=== PATIENT | male | born 2000 | race Caucasian/White ===

== ENCOUNTER 2021-08-08 15:43 | Observation (INO) ==
[2021-08-08 19:34] LABS: Basophils # (auto) 0.01 K/uL (0-0.2); Basophils % (auto) 0.1 %; Eosinophils # (auto) 0.02 K/uL (0-0.5); Eosinophils % (auto) 0.1 %; Hematocrit (blood only) 47.1 % (42-52); Hemoglobin 17.4 g/dL (14.0-18.0); Immature Granulocytes # (auto) 0.06 K/uL (0.00-0.02); Immature Granulocytes % (auto) 0.4 %; Lymphocytes # (auto) 1.57 K/uL (1.2-3.4); Lymphocytes % (auto) 9.3 %; Mean Corpuscular Hemoglobin 31.2 pg (25-34); Mean Corpuscular Hgb Conc 36.9 g/dL (32-36); Mean Corpuscular Volume 84.6 fL (80-100); Mean Platelet Volume 10.7 fL (7.4-10.4); Monocytes # (auto) 1.25 K/uL (0.11-0.59); Monocytes % (auto) 7.4 %; Neutrophils % (auto) 82.7 %; Platelet Count 288 K/uL (130-400); RDW Coefficient of Variation 12.7 % (11.5-14.5); RDW Standard Deviation 39.3 fL (36.4-46.3); Red Blood Count 5.57 M/uL (4.7-6.1); White Blood Count 16.81 K/uL (4.8-10.8)
[2021-08-08 19:51] LABS: Albumin Level 4.2 gm/dl (3.4-5.0); BUN Creatinine Ratio 12.3 (10-20); Calcium 9.7 mg/dl (8.5-10.1); Creatinine Clr Calc Pharmacy 141.8 ml/min; Est GFR (African American) 111.4 ml/min; Est GFR (Non-African American) 96.1 ml/min; Potassium 3.8 mmol/L (3.5-5.1)
[2021-08-08 19:54] LABS: Bilirubin,Total 0.5 mg/dl (0.2-1); Globulin 4.3 gm/dl (2.5-4.0); Total Protein 8.5 gm/dl (6.4-8.2)
[2021-08-08] MEDS ORDERED: SODIUM CHLORIDE 0.9% 1000ML 1,000 ML IV ONE (20:36)
[2021-08-08] MEDS ORDERED: ONDANSETRON INJ 2 MG/ML 2 ML VIAL IV STA (20:36)
--- NOTE | 2021-08-08 20:46 | Emergency Department Note ---
Impression & Plan Syncope, Elevated troponin I level, Nausea & vomiting ED Provider Note NAME: ADELE REDDY AGE: 21 SEX: M : 2000 ARRIVES VIA: Walk-In INFORMANT: Patient, ED PROVIDER(S): Randolph Barrera DO CHIEF COMPLAINT: vomiting HPI: the patient is a 21-year-old male who presented to emergency department for an evaluation after having a syncopal episode. The patient had a syncopal episode after simulating vomiting. The patient states he was with his significant other. He was simulating a vomiting episode but then had a syncopal episode. The patient had the vomiting episode twice and had three total of syncopal episodes. The patient presented to the emergency department immediately. He states that this time he has no symptoms. He denies having any chest pain. He denies having any difficulty breathing. The patient denies having any lower extremity swelling or pain. He denies having any headache. He did not strike his head. He denies having any trauma. He states he did not go to see her provider but came directly to the emergency department after the episode. The patient did have an extended wait in the waiting room. He states that this time he has no symptoms. He denies have any exertional shortness of breath. The patient has had no recent traveling. He states he did recently have an upper respiratory infection. He was taking [id number] medications for this. ROS: See above HPI for pertinent positives & negatives. A total of 10 systems reviewed and were otherwise negative. PAST MEDICAL HISTORY: See Below PAST SURGICAL HISTORY: See Below FAMILY HISTORY: See Below SOCIAL HISTORY: See Below HOME MEDICATIONS: See Below ALLERGIES: See Below VITALS: See Below PHYSICAL EXAMINATION: GENERAL: Patient is awake alert in no acute distress patient is resting comfortably and showing no signs of anxiety EYES: The conjunctivae are clear. The pupils are round and reactive. EARS, NOSE, MOUTH AND THROAT: The nose is without any evidence of any deformity. Mucous membranes are moist. Tongue is midline. NECK: The neck is nontender and supple. RESPIRATORY: Normal respiratory effort is noted there is no evidence of wheezing rhonchi or rales CARDIOVASCULAR: Regular rate and rhythm noted there no murmurs rubs or gallops normal S1 normal S2. GASTROINTESTINAL: The abdomen is soft. Abdomen is nontender. MUSCULOSKELETAL/EXTREMITIES: There is no evidence of gross deformity full range of motion is noted in the hips and shoulders. SKIN: There is no obvious evidence of any rash. There are no petechiae, pallor or cyanosis noted. NEUROLOGIC: Patient is awake alert and oriented x3 strength is symmetric patellar reflexes are 2+ bilaterally MEDICAL DECISION MAKING: the patient is a 21-year-old male who presented to the emergency department for an evaluation of syncope. The patient had multiple episodes of syncope as well as nausea and vomiting. I discussed patient's laboratory and radiographic studies with him. He was found to have an abnormal troponin. For this reason further radiographic studies were obtained to ensure there was no signs of pulmonary embolism or other cause that could explain the patient's elevated troponin. He did have a nonspecific viral illness last week. This resolved spontaneously but could explain the patient's elevated troponin if this was complicated with myocarditis. For this reason I discussed this case with the on- call [facility]. The patient may require further workup as an inpatient. The patient was agreeable to the plan. Triage Nursing notes reviewed. Prior medical records reviewed Vital Signs: reviewed and remarkable for no significant abnormalities Differential diagnosis: Vasovagal event, dehydration, infection, hypoglycemia, electrolyte abnormalities, cardiac sources, intracerebral event, pulmonary embolism, seizure, toxicologic, neurologic, as well as other pathologies. ER treatment provided: See below Diagnostics interpreted by me: ECG: EKG was obtained in the emergency department. My interpretation is normal sinus rhythm at 92 bpm. There was no activity. There was no acute ST segment abnormalities noted. No previous duration was available. Cardiac Monitoring: An order was placed for continuous cardiac monitoring. The monitor shows a rate of 87 bpm with sinus rhythm. Laboratory studies: As stated above and show below. Imaging studies: See below Consultation(s): I discussed this case with Dr. Genao who was access control specialist for the [facility] group. 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 Beliefs That Will Affect Care: None Current Living Situation: Other Current Living Situation Comment: L[place]ES [place] IN SCHOOL Feels Safe at Home: Yes Assistive Devices: None Allergies Allergies Allergy/AdvReac Type Severity Reaction Status Date / Time amoxicillin [From Augmentin] Allergy Intermediate Hives Verified 08/08/21 21:15 clavulanic acid Allergy Intermediate Hives Verified 08/08/21 21:15 [From Augmentin] Home Meds Home Medications Medication Instructions Recorded Confirmed guaifenesin 600 mg tablet, 600 mg PO Q12H PRN 08/08/21 08/08/21 extended release 12 hr (Mucinex) Results & Data (ED) Vital Signs Vital Signs - 24 hr 08/08/21 15:57 08/08/21 21:15 08/08/21 22:08 Temperature 36 C L Temperature Source Temporal Artery Scan Pulse Rate 87 Pulse Rate [Right Finger] 110 H 97 H Pulse Rhythm [Right Finger] Pulse Strength [Right Finger] Respiratory Rate 18 20 19 Respiratory Depth Normal Blood Pressure 136/83 Blood Pressure [Right Arm] 135/89 147/83 H Blood Pressure Mean 100 Blood Pressure Mean [Right Arm] 104 104 Pulse Oximetry 98 97 98 Oxygen Delivery Method Room Air Room Air Room Air Sepsis Recent Fever Within 48 Hours No Sepsis New/Unexplained Change in Mental Status No Sepsis Action Taken by Nursing No Action Required 08/09/21 00:48 Temperature Temperature Source Pulse Rate Pulse Rate [Right Finger] 87 Pulse Rhythm [Right Finger] Regular Pulse Strength [Right Finger] Normal Respiratory Rate 15 Respiratory Depth Blood Pressure Blood Pressure [Right Arm] 138/69 Blood Pressure Mean Blood Pressure Mean [Right Arm] 92 Pulse Oximetry 97 Oxygen Delivery Method Room Air Sepsis Recent Fever Within 48 Hours Sepsis New/Unexplained Change in Mental Status Sepsis Action Taken by [facility] Medications Current Medication List: was personally reviewed by me Laboratory Data Attestation: I reviewed the patient's lab results. Result diagrams: 08/08/21 19:15 08/08/21 19:15 Lab Results 08/08/21 08/08/21 08/08/21 Range/Units 19:15 19:15 19:15 WBC 16.81 H (4.8-10.8) K/uL RBC 5.57 (4.7-6.1) M/uL Hgb 17.4 (14.0-18.0) g/dL Hct 47.1 (42-52) % MCV 84.6 (80-100) fL MCH 31.2 (25-34) pg MCHC 36.9 H (32-36) g/dL RDW Std Deviation 39.3 (36.4-46.3) fL RDW Coeff of Reynaldo 12.7 (11.5-14.5) % Plt Count 288 (130-400) K/uL MPV 10.7 H (7.4-10.4) fL Immature Gran % (Auto) 0.4 % Neut % (Auto) 82.7 % Lymph % (Auto) 9.3 % [place] % (Auto) 7.4 % Eos % (Auto) 0.1 % Baso % (Auto) 0.1 % Neut # (Auto) 13.90 H (1.4-6.5) K/uL Lymph # (Auto) 1.57 (1.2-3.4) K/uL [place] # (Auto) 1.25 H (0.11-0.59) K/uL Eos # (Auto) 0.02 (0-0.5) K/uL Baso # (Auto) 0.01 (0-0.2) K/uL Immature Gran # (Auto) 0.06 H (0.00-0.02) K/uL ESR (0-15) mm/hr Sodium 138 (136-145) mmol/L Potassium 3.8 (3.5-5.1) mmol/L Chloride 105 (98-107) mmol/L Carbon Dioxide 25 (21-32) mmol/L Anion Gap 8.0 (3-11) BUN 14 (7-18) mg/dl Creatinine 1.10 (0.6-1.4) mg/dl Est Cr Clr Drug Dosing 141.8 ml/min Est GFR ( Amer) 111.4 ml/min Est GFR (Non-Af Amer) 96.1 ml/min BUN/Creatinine Ratio 12.3 (10-20) Glucose 108 H (70-99) mg/dl Calcium 9.7 (8.5-10.1) mg/dl Total Bilirubin 0.5 (0.2-1) mg/dl AST 19 (15-37) U/L ALT 57 (12-78) U/L Alkaline Phosphatase 140 H (45-117) U/L Troponin I 0.088 H* (0-0.045) ng/ml C-Reactive Protein (0-0.29) mg/dl Total Protein 8.5 H (6.4-8.2) gm/dl Albumin 4.2 (3.4-5.0) gm/dl Globulin 4.3 H (2.5-4.0) gm/dl Albumin/Globulin Ratio 1.0 (0.9-2) Lipase 66 L (73-393) U/L Urine Color Urine Appearance (Clear) Urine pH (4.5-7.5) Ur Specific [place] (1.000-1.030) Urine Protein (Negative) Urine Glucose (UA) (Negative) Urine Ketones (Negative) Urine Blood (Negative) Urine Nitrite (Negative) Urine Bilirubin (Negative) Urine Urobilinogen (Negative) Ur Leukocyte Esterase (Negative) COVID-19 Eval Order SARS-CoV-2 (PCR) (Negative) 08/08/21 08/08/21 08/08/21 Range/Units 19:15 19:15 22:06 WBC (4.8-10.8) K/uL RBC (4.7-6.1) M/uL Hgb (14.0-18.0) g/dL Hct (42-52) % MCV (80-100) fL MCH (25-34) pg MCHC (32-36) g/dL RDW Std Deviation (36.4-46.3) fL RDW Coeff of Reynaldo (11.5-14.5) % Plt Count (130-400) K/uL MPV (7.4-10.4) fL Immature Gran % (Auto) % Neut % (Auto) % Lymph % (Auto) % [place] % (Auto) % Eos % (Auto) % Baso % (Auto) % Neut # (Auto) (1.4-6.5) K/uL Lymph # (Auto) (1.2-3.4) K/uL [place] # (Auto) (0.11-0.59) K/uL Eos # (Auto) (0-0.5) K/uL Baso # (Auto) (0-0.2) K/uL Immature Gran # (Auto) (0.00-0.02) K/uL ESR 11 (0-15) mm/hr Sodium (136-145) mmol/L Potassium (3.5-5.1) mmol/L Chloride (98-107) mmol/L Carbon Dioxide (21-32) mmol/L Anion Gap (3-11) BUN (7-18) mg/dl Creatinine (0.6-1.4) mg/dl Est Cr Clr Drug Dosing ml/min Est GFR ( Amer) ml/min Est GFR (Non-Af Amer) ml/min BUN/Creatinine Ratio (10-20) Glucose (70-99) mg/dl Calcium (8.5-10.1) mg/dl Total Bilirubin (0.2-1) mg/dl AST (15-37) U/L ALT (12-78) U/L Alkaline Phosphatase (45-117) U/L Troponin I (0-0.045) ng/ml C-Reactive Protein < 0.29 (0-0.29) mg/dl Total Protein (6.4-8.2) gm/dl Albumin (3.4-5.0) gm/dl Globulin (2.5-4.0) gm/dl Albumin/Globulin Ratio (0.9-2) Lipase (73-393) U/L Urine Color Yellow Urine Appearance Clear (Clear) Urine pH 6.5 (4.5-7.5) Ur Specific [place] 1.044 H (1.000-1.030) Urine Protein Negative (Negative) Urine Glucose (UA) Negative (Negative) Urine Ketones Negative (Negative) Urine Blood Negative (Negative) Urine Nitrite Negative (Negative) Urine Bilirubin Negative (Negative) Urine Urobilinogen Negative (Negative) Ur Leukocyte Esterase Negative (Negative) COVID-19 Eval Order SARS-CoV-2 (PCR) (Negative) 08/08/21 08/08/21 Range/Units 23:00 23:00 WBC (4.8-10.8) K/uL RBC (4.7-6.1) M/uL Hgb (14.0-18.0) g/dL Hct (42-52) % MCV (80-100) fL MCH (25-34) pg MCHC (32-36) g/dL RDW Std Deviation (36.4-46.3) fL RDW Coeff of Reynaldo (11.5-14.5) % Plt Count (130-400) K/uL MPV (7.4-10.4) fL Immature Gran % (Auto) % Neut % (Auto) % Lymph % (Auto) % [place] % (Auto) % Eos % (Auto) % Baso % (Auto) % Neut # (Auto) (1.4-6.5) K/uL Lymph # (Auto) (1.2-3.4) K/uL [place] # (Auto) (0.11-0.59) K/uL Eos # (Auto) (0-0.5) K/uL Baso # (Auto) (0-0.2) K/uL Immature Gran # (Auto) (0.00-0.02) K/uL ESR (0-15) mm/hr Sodium (136-145) mmol/L Potassium (3.5-5.1) mmol/L Chloride (98-107) mmol/L Carbon Dioxide (21-32) mmol/L Anion Gap (3-11) BUN (7-18) mg/dl Creatinine (0.6-1.4) mg/dl Est Cr Clr Drug Dosing ml/min Est GFR ( Amer) ml/min Est GFR (Non-Af Amer) ml/min BUN/Creatinine Ratio (10-20) Glucose (70-99) mg/dl Calcium (8.5-10.1) mg/dl Total Bilirubin (0.2-1) mg/dl AST (15-37) U/L ALT (12-78) U/L Alkaline Phosphatase (45-117) U/L Troponin I (0-0.045) ng/ml C-Reactive Protein (0-0.29) mg/dl Total Protein (6.4-8.2) gm/dl Albumin (3.4-5.0) gm/dl Globulin (2.5-4.0) gm/dl Albumin/Globulin Ratio (0.9-2) Lipase (73-393) U/L Urine Color Urine Appearance (Clear) Urine pH (4.5-7.5) Ur Specific [place] (1.000-1.030) Urine Protein (Negative) Urine Glucose (UA) (Negative) Urine Ketones (Negative) Urine Blood (Negative) Urine Nitrite (Negative) Urine Bilirubin (Negative) Urine Urobilinogen (Negative) Ur Leukocyte Esterase (Negative) COVID-19 Eval Order Covid19 at [facility] SARS-CoV-2 (PCR) NEGATIVE (Negative) Administered Medications Discontinued Medications Sodium Chloride (Nss 1000ml) 1,000 mls @ 999 mls/hr IV .Q1H1M ONE Stop: 08/08/21 21:36 Last Infusion: 08/08/21 21:42 Dose: 0 mls/hr Documented by: [id number] Admin: 08/08/21 20:48 Dose: 999 mls/hr Documented by: [id number] Ioversol (Optiray 320 125ml) 108 ml IV ONCE ONE Stop: 08/08/21 21:26 Last Admin: 08/08/21 21:25 Dose: 108 ml Documented by: [id number] Ondansetron HCl (Ondansetron Inj 2 Mg/Ml 2 Ml Vial) 4 mg IV NOW STA Stop: 08/08/21 20:37 Last Admin: 08/08/21 20:49 Dose: Not Given Documented by: [id number] Imaging Data Radiologist's Impression: Chest X-Ray 08/08/21 20:35 XR chest 1V portable CLINICAL HISTORY: vomiting COMPARISON STUDY: No previous studies for comparison. FINDINGS: Lung volumes are normal. Slight asymmetric increased attenuation of the left lung is noted. There is no pneumothorax or pleural effusion. Cardiac size is normal. Mediastinal contours are normal. There is no evidence for pulmonary edema. IMPRESSION: Slight asymmetric increased attenuation of the left lung. This is likely artifactual. An infectious process is considered less likely. ACT 112: Negative or not required by law. Electronically signed by: Hemant Lilly M.D. 08/08/2021 9:00 PM Abdomen/Pelvis CT 08/08/21 21:13 CT abd pelvis IV con only CLINICAL INDICATION: Vomiting. TECHNIQUE: Helical axial images of the abdomen and pelvis were obtained and displayed. Automated dose lowering techniques and/or adjustment according to patient size were utilized for this exam. This exam was performed with intravenous contrast. COMPARISON: None available at the time of this dictation. FINDINGS: Lower chest: No acute abnormality Liver: Unremarkable. No focal lesions are seen. Gallbladder and biliary tree: No calcified gallstones. Normal caliber wall. No intra- or extrahepatic biliary ductal dilation. Pancreas: Unremarkable, no focal lesions. Spleen: Unremarkable. Adrenals: Unremarkable. Kidneys and ureters: Unremarkable. Bladder: Unremarkable. Reproductive organs: Unremarkable. Bowel: Unremarkable. The appendix is normal. Lymph nodes Retroperitoneal: Unremarkable. Mesenteric: Unremarkable. Pelvic: Unremarkable. Peritoneum: Normal Vessels: Unremarkable. Abdominal wall: A fat-containing umbilical hernia is seen. Bones: Unremarkable. IMPRESSION: No acute abnormalities, in particular no evidence of bowel obstruction. ACT 112: Negative or not required by law. Electronically signed by: Calos Reynaga M.D. 08/08/2021 9:47 PM Chest CTA 08/08/21 21:13 CT angio chest PE protocol INDICATION: Atypical chest pain.. TECHNIQUE: Multidetector row helical CT of the chest was performed. Coronal and sagittal reformations were obtained. Automated dose lowering techniques and/or adjustment according to patient size were utilized for this exam. Comparison: None available at the time of this dictation. FINDINGS: Lungs and pleura: Normal. Heart and pericardium: Heart size is normal. No pericardial effusion. Vessels: No evidence of pulmonary embolism. Mediastinum and molly: Unremarkable. Chest wall and lower neck: Unremarkable. Abdomen: For findings below the diaphragm, please refer to CT of the abdomen dated the same. Bones: Degenerative changes in the thoracic spine. IMPRESSION: No acute abnormalities, in particular no evidence of pulmonary embolism. ACT 112: Negative or not required by law. Electronically signed by: Calos Reynaga M.D. 08/08/2021 9:[address] 08/08/21 21:13 CT head/brain wo con Clinical Indication: MN ^vomiting, syncope. Technique: Contiguous axial CT images of the head were acquired from the base of the skull to the vertex without intravenous contrast administration. Images were viewed in brain, subdural and bone windows. Automated dose lowering techniques and/or adjustment according to patient size were utilized for this exam. Comparison: None available at the time of this dictation. Findings: The ventricles, basal cisterns, and cerebral sulci are normal. There is no acute intracranial hemorrhage or evidence of acute territorial infarction. Neither mass effect, shift of the midline structures, nor abnormal extra-axial fluid collections are shown. Opacification of bilateral ethmoid sinuses and the visualized portion of the maxillary sinuses noted. The orbits appear normal. There are no acute fractures of the calvaria or scalp swelling. Impression: No acute intracranial hemorrhage, evidence of acute territorial infarction, or other acute intracranial disease process. Sinus disease is noted. ACT 112: Negative or not required by law. Electronically signed by: Calos Reynaga M.D. 08/08/2021 9:34 PM Discharge Plan Visit Data Chief Complaint: Vomiting Stated Complaint: VOMITING, DIZZY, PASSING OUT, COLD SWEATS ED Provider: Randolph Barrera Discharge Problem: Syncope, Elevated troponin I level, Nausea & vomiting Patient Disposition: Admitted As Inpatient Forms Stand Alone Forms: My [facility]Card Prescriptions Prescriptions: No Action guaifenesin [Mucinex] 600 mg Tablet Extended Release 12hr 600 mg PO Q12H PRN (Reason: Congestion) RF: 0 Referrals Referrals: [facility] [Primary Care Provider] -
--- NOTE | 2021-08-08 21:02 | XRay Report ---
XR chest 1V portable CLINICAL HISTORY: vomiting COMPARISON STUDY: No previous studies for comparison. FINDINGS: Lung volumes are normal. Slight asymmetric increased attenuation of the left lung is noted. There is no pneumothorax or pleural effusion. Cardiac size is normal. Mediastinal contours are mikal l. There is no evidence for pulmonary edema. IMPRESSION: Slight asymmetric increased attenuation of the left lung. This is likely artifactual. An infectious process is considered less likely. ACT 112: Negative or not required by law. Electronically signed by: Hemant Lilly M.D. 08/08/2021 9:00 PM
[2021-08-08] MEDS ORDERED: OPTIRAY 320 125ml IV ONE (21:25)
--- NOTE | 2021-08-08 21:47 | CT Scan Report ---
CT head/brain wo con Clinical Indication: MN ^vomiting, syncope. Technique: Contiguous axial CT images of the head were acquired from the base of the skull to the karthik kell without intravenous contrast administration. Images were viewed in brain, subdural and bone windo ws. Automated dose lowering techniques and/or adjustment according to patient size were utilized for this exam. Comparison: None available at the time of this dictation. Findings: The ventricles, basal cisterns, and cerebral sulci are normal. There is no acute intracranial hemorrh age or evidence of acute territorial infarction. Neither mass effect, shift of the midline structures , nor abnormal extra-axial fluid collections are shown. Opacification of bilateral ethmoid sinuses and the visualized portion of the maxillary sinuses noted. The orbits appear normal. There are no acute fractures of the calvaria or scalp swelling. Impression: No acute intracranial hemorrhage, evidence of acute territorial infarction, or other acute intracrani al disease process. Sinus disease is noted. ACT 112: Negative or not required by law. Electronically signed by: Calos Reynaga M.D. 08/08/2021 9:34 PM
--- NOTE | 2021-08-08 21:48 | CT Scan Report ---
CT abd pelvis IV con only CLINICAL INDICATION: Vomiting. TECHNIQUE: Helical axial images of the abdomen and pelvis were obtained and displayed. Automated dose lowering techniques and/or adjustment according to patient size were utilized for this exam. This e xam was performed with intravenous contrast. COMPARISON: None available at the time of this dictation. FINDINGS: Lower chest: No acute abnormality Liver: Unremarkable. No focal lesions are seen. Gallbladder and biliary tree: No calcified gallstones. Normal caliber wall. No intra- or extrahepatic biliary ductal dilation. Pancreas: Unremarkable, no focal lesions. Spleen: Unremarkable. Adrenals: Unremarkable. Kidneys and ureters: Unremarkable. Bladder: Unremarkable. Reproductive organs: Unremarkable. Bowel: Unremarkable. The appendix is normal. Lymph nodes Retroperitoneal: Unremarkable. Mesenteric: Unremarkable. Pelvic: Unremarkable. Peritoneum: Normal Vessels: Unremarkable. Abdominal wall: A fat-containing umbilical hernia is seen. Bones: Unremarkable. IMPRESSION: No acute abnormalities, in particular no evidence of bowel obstruction. ACT 112: Negative or not required by law. Electronically signed by: Calos Reynaga M.D. 08/08/2021 9:47 PM
--- NOTE | 2021-08-08 21:54 | CT Scan Report ---
CT angio chest PE protocol INDICATION: Atypical chest pain.. TECHNIQUE: Multidetector row helical CT of the chest was performed. Coronal and sagittal reformations were obtained. Automated dose lowering techniques and/or adjustment according to patient size were u tilized for this exam. Comparison: None available at the time of this dictation. FINDINGS: Lungs and pleura: Normal. Heart and pericardium: Heart size is normal. No pericardial effusion. Vessels: No evidence of pulmonary embolism. Mediastinum and molly: Unremarkable. Chest wall and lower neck: Unremarkable. Abdomen: For findings below the diaphragm, please refer to CT of the abdomen dated the same. Bones: Degenerative changes in the thoracic spine. IMPRESSION: No acute abnormalities, in particular no evidence of pulmonary embolism. ACT 112: Negative or not required by law. Electronically signed by: Calos Reynaga M.D. 08/08/2021 9:44 PM
[2021-08-08 22:17] LABS: Appearance Urine Clear (Clear); Bilirubin Urine Negative (Negative); Blood Urine Negative (Negative); Color Urine Yellow; Glucose Urine UA Negative (Negative); Ketones Urine Negative (Negative); Leukocyte Esterase Urine Negative (Negative); Nitrite Urine Negative (Negative); Protein Urine Negative (Negative); Specific Gravity Urine 1.044 (1.000-1.030); Urobilinogen Urine Negative (Negative); pH Urine 6.5 (4.5-7.5)
--- NOTE | 2021-08-08 23:58 | History & Physical Report ---
Date of Service August 08, 2021 Assessment & Plan (1) Syncope: (2) Elevated troponin: Plan: 21 yo M with no pertinent PMHx admitted for elevated troponin and syncope x3. Syncope, elevated troponin: -Troponin 0.088 with several episodes of syncope today. -Suspect orthostatic / vasovagal episodes given syncope occurred with lying to standing and with severe retching/vomiting. - Will trend troponins, with Echo in the morning. - Elevated troponin could be due to a viral myocarditis given recent viral illness. Elevated Alk Phos: -Patient with elevated alk phos, no baseline to compare. -No complaints of nausea prior to emesis (was gagging on his food), and no current GI symptoms. -Repeat CMP in AM. Code Status: FULL CODE FEN: Regular diet DVT ppx: ambulate on demand, low risk Dispo: Med/Surg with Telemetry History of Present Illness Chief Complaint: syncope x3 Primary Care Provider: [facility] 21 yo M no significant PMHx presents for syncope x3 today. First episode occurred after a gagging episode that turned into emesis. The second episode occured when he stood up to go from the bathroom to the bedroom. The third episode occurred with standing from lying down. No history of syncopal episodes in the past prior to today. He reports in general he has had a URI illness for the last week, and has had three COVID 19 tests which were all negative. He has not had any GI symptoms prior to today. No complaints of abdominal pain, chest pain, SOB, lightheadedness during my interview. In the ER patient was found to have elevated WBC count to 16, with mildly elevated troponin to 0.088. Given elevated troponin and syncopal episodes decision was made to observe patient overnight with serial troponins and Echo in the AM. No history in the family of sudden cardiac or cardiac before age 50. Allergies Allergy/AdvReac Type Severity Reaction Status Date / Time amoxicillin [From Augmentin] Allergy Intermediate Hives Verified 08/08/21 21:15 clavulanic acid Allergy Intermediate Hives Verified 08/08/21 21:15 [From Augmentin] Home Medications Medication Instructions Recorded Confirmed Type guaifenesin 600 mg tablet, 600 mg PO Q12H PRN 08/08/21 08/08/21 History extended release 12 hr (Mucinex) acetaminophen 325 mg tablet 650 mg PO Q4H PRN 2 Days #10 tab 08/09/21 Rx Past Med/Surg History Medical History (Updated 08/09/21 @ 01:38 by Randolph Barrera DO) Eosinophilic esophagitis H/O Surgical History History of esophagogastroduodenoscopy (EGD) History of hernia repair AN History of mandibular surgery REMOVAL OF ODONTOMA History of wisdom tooth extraction Family History Grandfather (Paternal) Family history of diabetes mellitus Other No family history of adverse response to anesthesia Social History Smoking Status: Never smoker Second Hand Exposure: No; Hx Alcohol Use: Yes Hx Substance Use: No Preferred Language: Moldovan Communication Ability: Effective Airplane Fueler Required: No Beliefs That Will Affect Care: None Current Living Situation: Other Current Living Situation Comment: LIVES IN [employer] [place] WHILE IN SCHOOL Feels Safe at Home: Yes Assistive Devices: None Review of Systems Review of Systems: All systems reviewed & are unremarkable except as noted in HPI & below Constitutional: no fever, no chills and no malaise Respiratory: no cough and no dyspnea Cardiovascular: no chest pain, no palpitations and no edema Gastrointestinal: no abdominal pain, no constipation and no diarrhea/loose stools Physical Exam Constitutional: WD/WN, vitals as above Eyes: PERRL, conjunctivae normal, anicteric sclerae ENMT: external ear and nose normal, oropharynx normal Neck: normal visual inspection Respiratory: normal respiratory effort, lungs clear to auscultation Cardiovascular: RRR, no murmur, no edema Gastrointestinal (Abdomen): normal bowel sounds, soft, nontender, no hepatosplenomegaly Musculoskeletal: no cyanosis or clubbing, extremities motor strength 5/5 Skin: no rashes, warm and dry Neurologic: AAOx3, normal speech. Bilateral UE, LE, and face without sensory or motor deficits. Psychiatric: A+Ox3, euthymic affect Results & Data Results & Data ([facility]) Vital Signs (Past 12 Hours) Vital Signs Temp Pulse Pulse Resp BP BP Pulse Ox 08/08/21 22:08 97 H 19 147/83 H 98 08/08/21 21:15 110 H 20 135/89 97 08/08/21 15:57 36 C L 87 18 136/83 98 Code Status & VTE Plan VTE Prophylaxis Plan VTE Prophylaxis will be ordered: No Supervising Physician Co-Signing Physician Notes Patient seen and examined, chart reviewed, case discussed with Dr. Dowell and I agree with her assessment and plan as documented above. In brief, patient is a 21yo male with with remote history of eosinophilic esophagitis presenting after syncopal episodes x 3, elevated troponin at 0.088. The episode began when the patient was pretending to gag on food which led to real gagging, multiple episodes of vomiting. Unremarkable exam. VSS. Labs and images reviewed. WBC=16.8 Troponin = 0.088 EKG with no acute ischemic changes Assessment/Plan - 21yo male with syncope x 3, mildly elevated troponin. No prior history of cardiac issues. No family history of SCD. Doubt ischemia. ?elevated troponin from stress response, ?myocarditis. ?structural heart disease? -Telemetry monitoring -Check 2D echo -Trend troponin -Repeat LFTs in AM - suspect elevation of AP is secondary to vomiting -Remainder of plan as above Resident Activity Tracking Resident Involvement: Resident Care Provided Care Provided: Adult Hospital Medicine
[2021-08-09] MEDS ORDERED: ACETAMINOPHEN 325 MG TAB PO PRN (02:44)
[2021-08-09] MEDS ORDERED: ONDANSETRON INJ 2 MG/ML 2 ML VIAL IV PRN (02:44)
[2021-08-09 07:39] LABS: Hematocrit (blood only) 42.8 % (42-52); Hemoglobin 15.3 g/dL (14.0-18.0); Mean Corpuscular Hemoglobin 30.8 pg (25-34); Mean Corpuscular Hgb Conc 35.7 g/dL (32-36); Mean Corpuscular Volume 86.1 fL (80-100); Mean Platelet Volume 10.7 fL (7.4-10.4); Platelet Count 282 K/uL (130-400); RDW Standard Deviation 41.2 fL (36.4-46.3); Red Blood Count 4.97 M/uL (4.7-6.1); White Blood Count 9.51 K/uL (4.8-10.8)
[2021-08-09 08:10] LABS: Albumin Level 3.4 gm/dl (3.4-5.0); BUN Creatinine Ratio 13.1 (10-20); Calcium 8.9 mg/dl (8.5-10.1); Creatinine Clr Calc Pharmacy 162.5 ml/min; Est GFR (African American) 131.4 ml/min; Est GFR (Non-African American) 113.3 ml/min; Potassium 3.9 mmol/L (3.5-5.1)
[2021-08-09 08:12] LABS: Albumin Globulin Ratio 0.9 (0.9-2); Bilirubin,Total 0.3 mg/dl (0.2-1); Globulin 3.9 gm/dl (2.5-4.0); Total Protein 7.3 gm/dl (6.4-8.2)
--- NOTE | 2021-08-09 08:51 | Electrocardiogram Report ---
Test Reason : Blood Pressure : / mmHG Vent. Rate : 092 BPM Atrial Rate : 092 BPM P-R Int : 142 ms QRS Dur : 096 ms QT Int : 354 ms P-R-T Axes : 049 045 020 degrees QTc Int : 437 ms Normal sinus rhythm Possible Left atrial enlargement Borderline ECG No previous ECGs available Confirmed by Rakesh Dee ([id number]) on 08/09/2021 8:50:36 AM Referred By: REFERRED SELF Confirmed By:Spenser Dee
--- NOTE | 2021-08-09 09:06 | XCELERA ---
[id number] \\[id number]
--- NOTE | 2021-08-09 11:34 | Discharge Summary ---
Date of Service August 09, 2021 Admission HPI Per Admitting Provider 21 yo M no significant PMHx presents for syncope x3 today. First episode occurred after a gagging episode that turned into emesis. The second episode occured when he stood up to go from the bathroom to the bedroom. The third episode occurred with standing from lying down. No history of syncopal episodes in the past prior to today. He reports in general he has had a URI illness for the last week, and has had three COVID 19 tests which were all negative. He has not had any GI symptoms prior to today. No complaints of abdominal pain, chest pain, SOB, lightheadedness during my interview. In the ER patient was found to have elevated WBC count to 16, with mildly elevated troponin to 0.088. Given elevated troponin and syncopal episodes decision was made to observe patient overnight with serial troponins and Echo in the AM. No history in the family of sudden cardiac or cardiac before age 50. Admission Exam Per Admitting Provider Constitutional: WD/WN, vitals as above Eyes: PERRL, conjunctivae normal, anicteric sclerae ENMT: external ear and nose normal, oropharynx normal Neck: normal visual inspection Respiratory: normal respiratory effort, lungs clear to auscultation Cardiovascular: RRR, no murmur, no edema Gastrointestinal (Abdomen): normal bowel sounds, soft, nontender, no hepatosplenomegaly Musculoskeletal: no cyanosis or clubbing, extremities motor strength 5/5 Skin: no rashes, warm and dry Neurologic: AAOx3, normal speech. Bilateral UE, LE, and face without sensory or motor deficits. Psychiatric: A+Ox3, euthymic affect Principal Diagnosis Syncope Discharge Exam Constitutional WD/WN, vitals as above no acute distress Eyes PERRL, conjunctivae normal, anicteric sclerae ENMT external ear and nose normal, oropharynx normal Respiratory normal respiratory effort, lungs clear to auscultation Cardiovascular RRR, no murmur, no edema Gastrointestinal (Abdomen) normal bowel sounds, soft, nontender, no hepatosplenomegaly Musculoskeletal no cyanosis or clubbing, extremities motor strength 5/5 Skin no rashes, warm and dry moderate facial flushing Neurologic patellar DTR's 2+ bilat, sensation intact Psychiatric A+Ox3, euthymic affect Discharge Data Allergies Allergy/AdvReac Type Severity Reaction Status Date / Time amoxicillin [From Augmentin] Allergy Intermediate Hives Verified 08/08/21 21:15 clavulanic acid Allergy Intermediate Hives Verified 08/08/21 21:15 [From Augmentin] Consultations 08/08/21 23:13 ED Decision to Admit Stat Ordered Studies 08/08/21 21:13 CT abd pelvis IV con only Stat CT angio chest PE protocol Stat CT head/brain wo con Stat Hospital Course (1) Syncope: (2) Elevated troponin: 21 yo M with no pertinent PMHx admitted for elevated troponin and syncope x3. Syncope, elevated troponin: -Troponin 0.088 in ER with several episodes of syncope today --> peaked at 0.019 -Echo was unremarkable, EKG normal sinus -Suspect this was due to his episode of retching/vomiting which was caused when he was trying make a gagging sound on his food for fun. This morning he was seen with a flushed red face which is likely secondary to the pressure from his intense vomiting episode. He subsequently had two episodes of feeling lightheaded and nearly passing out from laying to standing position. Unsure whether this was continuous from vasovagal or if there was some orthostatic component. -Recommend getting tilt table testing outpatient for further evaluation. Elevated Alk Phos: -elevated alk phos in ER, no baseline to compare --> now resolved -No complaints of nausea prior to emesis (was gagging on his food), and no current GI symptoms. Total Time Total Time Spent Total Time Spent (In Minutes): 30 Discharge Plan Discharge Items Patient Disposition: Home - Self-Care Reason For Visit: SYNCOPE, ELEVATED TROPONIN Discharge Diagnosis: Syncope Activity: Per Instructions section Non-emergency contact: Primary Care Provider Call non-emergency contact if: you have any medication questions, your symptoms worsen and your pain is not controlled Follow-up/Referrals: [facility] [Primary Care Provider] - Rommel Vasquez DO [Resident] - Diet: Regular Addtl Attending Provider Instructions: You came into the ED after experiencing three syncopal events following an episode of retching/vomiting. On arrival you had an elevated white blood count, which may have been due to your upper respiratory infection you had previously. Your troponin level, a marker of heart inflammation, was also elevated which we continued to follow and eventually downtrended to normal. All imaging performed was negative including a heart echocardiogram ruling out any heart abnormalities. You likely experienced a vasovagal syncopal event which was triggered from the episode of retching/vomiting. However, you should follow up with your primary care provider for further evaluation. Since you did experience some lightheadedness and feelings of passing out when you went from a laying down to a standing position, you should get a tilt table test performed in the outpatient setting. Pending Studies at Discharge: No Stand-Alone Forms: [facility] Medications and DC Order Prescriptions: New acetaminophen 325 mg Tablet 650 mg PO Q4H PRN (Reason: pain) 2 Days Qty: 10 RF: 0 Continued guaifenesin [Mucinex] 600 mg Tablet Extended Release 12hr 600 mg PO Q12H PRN (Reason: Congestion) RF: 0 Discharge Orders: Discharge Order (Routine); Ordered 08/09/21 Ordered By: Rommel Vasquez Admission Data Admit Date/Time: 08/08/21 23:58 Attending Provider: Daniel Chavez Admit Provider: Suri Dowell Primary Care Provider: [facility] Other Providers: Shakira Genao Other Interventions: Discharge Summary Assessment (RN) Last Done: 08/09/21 15:32 Supervising Physician Co-Signing Physician Notes Attending attestation Pt seen and examined in concert with Dr. Vasquez. In agreement with the documented findings as noted in the resident documentation with any exceptions or additions as noted here. Complete resolution of symptoms without present complaint. Review of history - initial onset of symptoms with bending at the waist while sitting onthe toilet having a BM and vomited after self-gagging. Repeated presyncope with falls occurred immediately thereafter with attempts to stand and move rapidly. REports only rare protein powder use without caffeine, no substance use, no recent etOH, recent sudafed-pe use last 2 days ago without any other substances. On examination, S1/S2 nl RRR no MCG. CTAB. Abd NT/ND BS+ve, CNII - XII grossly intact, diffuse flushing of the face c/w severe vomiting/wretching Syncope - echocardiogram, CTPE, CT head without apparent pathology - counseling re: recurrence, strongly recommend outpatient follow up for surveillance and further evaluation Else see resident documentation as noted. Total attending time spent on the day of discharge: 40 minutes. Resident Activity Tracking Resident Involvement: Resident Care Provided Care Provided: Adult [facility] Medicine
--- NOTE | 2021-08-09 19:17 | Billing Data ---
Date of Service August 08, 2021 Coding Level of Care Code INT OBSERVATION CARE 51M LVL 2
== END 2021-08-09 16:00 | disposition home or self-care (01) ==
LOC: ED 15:43 → EDINP 15:43 → SUATTDRO 23:58 → EDINP 08-09 02:44